=== PATIENT | male | born 2000 | race Two or more races ===

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

== ENCOUNTER 2019-02-26 16:00 | Emergency (ER) | payer OTHER ==
[~2019-02-26] VITALS: Ht 162.6 cm; Wt 67.6 kg
[2019-02-26 18:46] VITALS: BP 123/82
== END 2019-02-26 19:12 | disposition home or self-care (01) ==
LOC: ED 19:06
DX: K62.5 Hemorrhage of anus and rectum (principal); K52.9 Noninfective gastroenteritis and colitis, unspecified; Z21 Asymptomatic human immunodeficiency virus [HIV] infection status
CPT/HCPCS: 36415; 74177; 80053; 85025; 85610; 85730; 99284; Q9967

== ENCOUNTER 2019-10-06 16:32 | Emergency (ER) | payer OTHER ==
[~2019-10-06] VITALS: Ht 172.7 cm; Wt 74.0 kg
[2019-10-06 16:45] VITALS: BP 136/82
== END 2019-10-06 17:18 | disposition home or self-care (01) ==
LOC: ED 17:10
DX: N48.89 Other specified disorders of penis (principal); Z21 Asymptomatic human immunodeficiency virus [HIV] infection status
CPT/HCPCS: 36415; 86705; 86706; 86803; 87340; 87806; 99283; G0475

== ENCOUNTER 2021-01-19 10:01 | Emergency (ER) | payer OTHER ==
[~2021-01-19] VITALS: Ht 172.7 cm; Wt 70.0 kg
[2021-01-19 10:36] VITALS: BP 130/78
== END 2021-01-19 10:58 | disposition home or self-care (01) ==
LOC: ED 10:08
DX: K75.9 Inflammatory liver disease, unspecified (principal); Z11.4 Encounter for screening for human immunodeficiency virus [HIV]
CPT/HCPCS: 36415; 86704; 86705; 86706; 86803; 87340; 87806; 99283; G0475